=== PATIENT | female | born 1970 | race Caucasian/White ===

== ENCOUNTER 2022-07-26 07:56 | Outpatient (CLI) | payer BC, SELFPAY ==
[2022-07-26 09:36] LABS: Chloride* 102 mmol/L (96-114); Potassium* 4.6 mmol/L (3.6-5.1); Sodium* 139 mmol/L (135-149)
[2022-07-26 09:39] LABS: Blood Urea Nitrogen* 12 mg/dL (7-30); Carbon Dioxide* 32 mmol/L (20-32); Cholesterol* 158 mg/dL (90-199); Creatinine* 0.7 mg/dL (0.5-1.5); Estimated Glomerular Filt Rate 103 ml/min; Glucose* 107 mg/dL (60-115); Triglycerides* 96 mg/dL (40-149)
[2022-07-26 09:40] LABS: Calcium* 9.5 mg/dL (8.4-10.6); HDL Cholesterol* 80 mg/dL (>=50); LDL Cholesterol Calculated 59 mg/dL (<100)
== END 2022-07-26 07:57 | disposition home or self-care (01) ==
LOC: NFLDREF 07:56
PROVIDERS: PCP Internal Medicine; Visit Provider Internal Medicine
DX: I10 Essential (primary) hypertension (principal); Z13.6 Encounter for screening for cardiovascular disorders
CPT/HCPCS: 80048; 80061

== ENCOUNTER 2022-07-28 11:24 | Outpatient (CLI) | payer BC, SELFPAY ==
--- NOTE | 2022-07-28 11:30 | CRLHL7_ITS ---
For Patients: As a result of the Cures Act, medical imaging exams and procedure reports are released immediately into your electronic medical record. You may view this report before your referring provider. If you have questions, please contact your health care provider. BILATERAL DIGITAL SCREENING MAMMOGRAM WITH COMPUTER-AIDED DETECTION AND TOMOSYNTHESIS CLINICAL HISTORY: Routine screening exam. COMPARISON: 07/27/2021, 07/26/2020, 05/02/2019. TECHNIQUE: Digital mammogram in CC and MLO projections including computer-aided detection (CAD) and tomosynthesis. BREAST COMPOSITION: The breasts are heterogeneously dense, which may obscure small masses FINDINGS: RIGHT Breast: Focal asymmetric density within the lateral RIGHT breast 6 cm from the nipple CC view only. LEFT Breast: No suspicious findings. IMPRESSION: RIGHT breast asymmetry/mass. RECOMMENDATIONS: Additional mammographic views of the RIGHT breast including 3D spot-compression CC and 3D true lateral. RIGHT breast ultrasound may also be required. The [facility] will contact the patient for follow-up. A lay language report of this examination will be provided to the patient. BI-RADS Category 0: Incomplete: Need Additional Imaging Evaluation and/or Prior Mammograms for Comparison Dictated by Doyle Mena MD @ 07/31/2022 12:23:50 PM/madelyn ENRIQUE/Dictated by: Doyle Mena MD @ 07/31/2022 12:24:00 PM (Electronically Signed)
== END 2022-07-28 11:25 | disposition home or self-care (01) ==
LOC: MAMMO 11:24
PROVIDERS: PCP Internal Medicine; Visit Provider Internal Medicine
DX: Z12.31 Encounter for screening mammogram for malignant neoplasm of breast (principal); N63.10 Unspecified lump in the right breast, unspecified quadrant; R92.2 Inconclusive mammogram
CPT/HCPCS: 77063; 77067

== ENCOUNTER 2022-08-02 10:43 | Outpatient (CLI) | payer BC, SELFPAY ==
--- NOTE | 2022-08-02 10:45 | CRLHL7_ITS ---
For Patients: As a result of the Cures Act, medical imaging exams and procedure reports are released immediately into your electronic medical record. You may view this report before your referring provider. If you have questions, please contact your health care provider. DIGITAL DIAGNOSTIC RIGHT MAMMOGRAM USING TOMOSYNTHESIS AND COMPUTER-AIDED DETECTION RIGHT BREAST ULTRASOUND CLINICAL HISTORY: RIGHT breast mass/asymmetry. COMPARISON: 07/28/2022. TECHNIQUE: Digital RIGHT mammogram in two projections. Tomosynthesis and CAD utilized. Real-time ultrasound imaging of RIGHT breast with imaging documentation. BREAST COMPOSITION: The breast is heterogeneously dense, which may obscure small masses. FINDINGS: 3D spot compression CC and 3D true lateral RIHT breast mammogram images submitted. Decreased conspicuity of the previously noted asymmetric density. No underlying mass or architectural distortion on today`s exam. Targeted RIGHT breast ultrasound performed in the lower outer quadrant corresponding to the finding on screening mammogram. In this location there is normal dense fibroglandular tissue at 8 o`clock 6 cm from the nipple. IMPRESSION: Normal fibroglandular tissue. No evidence of malignancy. RECOMMENDATIONS: Annual BILATERAL screening mammography. Results and recommendations discussed with the patient. BI-RADS Category 2: Benign A lay language report of this examination will be provided to the patient. Dictated by Doyle Mena MD @ 08/02/2022 11:35:07 AM johanna/Dictated by: Doyle Mena MD @ 08/02/2022 11:35:00 AM (Electronically Signed)
--- NOTE | 2022-08-02 11:15 | CRLHL7_ITS ---
For Patients: As a result of the Cures Act, medical imaging exams and procedure reports are released immediately into your electronic medical record. You may view this report before your referring provider. If you have questions, please contact your health care provider. PLEASE SEE DIGITAL DIAGNOSTIC RIGHT MAMMOGRAM PERFORMED SAME DAY CRL:don [email or web address]/Dictated by: Doyle Mena MD @ 08/02/2022 11:35:00 AM (Electronically Signed)
== END 2022-08-02 10:44 | disposition home or self-care (01) ==
LOC: MAMMO 10:43
PROVIDERS: PCP Internal Medicine; Visit Provider Internal Medicine
DX: N63.10 Unspecified lump in the right breast, unspecified quadrant (principal); R92.8 Other abnormal and inconclusive findings on diagnostic imaging of breast; R92.2 Inconclusive mammogram
CPT/HCPCS: 76642; 77065; G0279

== ENCOUNTER 2022-11-22 11:28 | Outpatient (CLI) | payer BC, SELFPAY ==
[2022-11-22 15:44] LABS: Chlamydia DNA Amplified* NOT DETECTED (No Detected); GC DNA Amplified* NOT DETECTED (No Detected)
== END 2022-11-22 11:29 | disposition home or self-care (01) ==
LOC: NFLDREF 11:28
PROVIDERS: PCP Internal Medicine; Visit Provider Family Medicine
DX: N89.8 Other specified noninflammatory disorders of vagina (principal)
CPT/HCPCS: 87491; 87591

== ENCOUNTER 2023-07-30 14:42 | Outpatient (CLI) | payer BC, SELFPAY ==
--- NOTE | 2023-07-30 14:40 | MM_ITS ---
Final Report Patient: NICOLE BLAND Facility:?[facility] Patient ID:?[id number] :?[id number] Study:?XRay Breast Bilateral 3D W/CAD-07/30/2023 3:49:13 PM Ordering Physician:Estelle Zaman Final Report: BILATERAL SCREENING MAMMOGRAM WITH COMPUTER-AIDED DETECTION AND TOMOSYNTHESIS TECHNIQUE: CC and MLO views were obtained. These mammographic images have been obtained using full-field digital technique. These mammographic images were interpreted with the benefit of computer-aided detection. Breast Tomosynthesis was used in this interpretation. COMPARISON FILM: 07/27/21, 07/26/20, 05/02/19. FINDINGS: The breasts are heterogeneously dense, which may obscure small masses. IMPRESSION: There is no radiographic evidence for malignancy. ASSESSMENT: BI-RADS Category 1: Negative RECOMMENDATION: Routine screening mammogram in 1 year. A lay language report of this examination will be provided to the patient. Doyle Mena M.D. Diagnostic Radiologist [email or web address] DSM/sp R& Transcribed: 3:48 p.m. SP/Dictated by: Doyle Mena MD @ 08/01/2023 12:55:00 PM (Electronic Signature)
== END 2023-07-30 14:43 | disposition home or self-care (01) ==
LOC: MAMMO 14:42
PROVIDERS: PCP Internal Medicine; Visit Provider Internal Medicine
DX: Z12.31 Encounter for screening mammogram for malignant neoplasm of breast (principal); R92.2 Inconclusive mammogram
CPT/HCPCS: 77063; 77067; 80048

== ENCOUNTER 2023-10-29 08:20 | Outpatient (CLI) | payer BC, SELFPAY ==
--- OUTSIDE RECORDS SUMMARY | 2023-11-16 08:41 | XMS_ITS | Referral Summary ---
Author Organization [facility] Address [address] [place] [address] Care Team Providers Care Senior Manager Asset Protection Name Role Phone Unavailable Primary Care Provider Unavailabl e Source Comments Patient records contain information from all sites at [facility]. For routine questions regarding patient records, call [phone] during business hours, M-F 8:00 AM - 5:00 PM Central Time. Record requests for emergency care only can be directed to [phone] at any time.[facility] Social History Tobacco Use Types Packs/Day Years Used Date Smoking Tobacco: Never Assessed Nutrition Answer Date Recorded Nutrition: EVOO Fat Source Unknown 06/15 Nutrition: Servings of Fruits/Vegetables per Day Not on file 06/15/2022 Dental Answer Date Recorded Dental: Regular Dentist Unknown 06/15/19 23 Sex and Gender Information Value Date Recorded Sex Assigned at Not on file Gender Identity Not on file Sexual Orientation Not on file Plan of Treatment Not on file Procedures Procedure Name Priority Date/Time Associated Diagnosis Comments BI BREAST SCREENING BILATERAL WITH TOMOSYNTHESIS RAD - Routine (most inpatients and all outpatients) 03/26/2017 4:03 PM CDT from Last 3 Months or Most Recently Relevant to Health Maintenance
--- OUTSIDE RECORDS SUMMARY | 2023-11-16 08:41 | XMS_ITS | Clinical Summary ---
Author Organization [facility] Address [address] [place] [id number] Care Team Providers Care Lithographic General Worker Name Role Phone Unavailable Primary Care Provider Unavailabl e Source Comments Patient records contain information from all sites at [facility]. For routine questions regarding patient records, call [phone] during business hours, M-F 8:00 AM - 5:00 PM Central Time. Record requests for emergency care only can be directed to [phone] at any time.[facility] Social History Tobacco Use Types Packs/Day [...] Orientation Not on file Plan of Treatment Health Maintenance Due Date Last Done Comments CT Colonography 1970 Cervical Cancer Screening 1970 Cologuard 1970 Colonoscopy 1970 Colorectal Cancer Screening 1970 FIT 1968 Fasting Glucose for Diabetes Screening 1970 HIV Screening 1970 Hepatitis C Screening 1970 Lipid (Cholesterol) Screening 1970 Hepatitis B Vaccines (1 of 3 - 19+ 3-dose series) 12/25/1987 Mammogram 03/26/2018 03/26/2017, 03/11, 03/23/2015 Influenza Vaccine (#1) 2023 , 03/24/2021, 03/06/2020, Additional history exists Depression Screening (Annual PHQ-2) 06/11/2023 DTaP,Tdap,and Td Vaccines (3 - Td or Tdap) 05/19/2029 05/19/2019, 03/14/2012, 08/10/2004 Zoster Vaccines Completed 05/02/2019, 03/01/2019 COVID-19 Vaccine Completed 03/07/2023, , 11/17/2021, Additional history exists Pneumococcal vaccine (0-64 years) Aged Out No longer eligible based on patient's age to complete this topic Procedures Procedure Name Priority Date/Time Associated Diagnosis Comments BI BREAST SCREENING BILATERAL WITH TOMOSYNTHESIS RAD - Routine (most inpatients and all outpatients) 03/26/2017 4:03 PM CDT from Last 3 Months or Most Recently Relevant to Health Maintenance
--- OUTSIDE RECORDS SUMMARY | 2023-11-16 08:41 | XMS_ITS ---
Author Organization [facility] Address [address] [place] [address] Care Team Providers Care Employee Benefits Insurance Agent Name Role Phone Unavailable Unavailable Unavailable Surgery Details Not on file Complications Check Surgery Details section. Procedure Estimated Blood Loss Check Surgery Details section. Procedure Findings Check Surgery Details section. Procedure Specimens Taken Check Surgery Details section.
== END 2023-10-29 08:21 | disposition home or self-care (01) ==
LOC: NFLDREF 11-16 08:40
PROVIDERS: PCP Internal Medicine; Referring Provider Internal Medicine; Visit Provider Internal Medicine
DX: Z11.3 Encounter for screening for infections with a predominantly sexual mode of transmission (principal)
CPT/HCPCS: 86592; 86703

== ENCOUNTER 2024-08-07 08:18 | Outpatient (CLI) | payer BC, SELFPAY | END 2024-08-07 08:19 | disposition home or self-care (01) | LOC: MAMMO 08:20 | PROVIDERS: PCP Internal Medicine; Visit Provider Internal Medicine | DX: Z12.31 Encounter for screening mammogram for malignant neoplasm of breast (principal); R92.333 Mammographic heterogeneous density, bilateral breasts | CPT/HCPCS: 77063; 77067 ==

== ENCOUNTER 2024-09-15 07:50 | Outpatient (CLI) | payer BC, SELFPAY | END 2024-09-15 07:51 | disposition home or self-care (01) | PROVIDERS: PCP Internal Medicine; Referring Provider Internal Medicine; Visit Provider Internal Medicine | DX: I10 Essential (primary) hypertension (principal) | CPT/HCPCS: 80048 ==